=== PATIENT | male | born 1985 | race Caucasian/White ===

== ENCOUNTER 2017-05-10 15:30 | Emergency (ER) | payer OTHER ==
[~2017-05-10] VITALS: Ht 177.8 cm; Wt 81.8 kg
[~2017-05-10 15:30] MED LIST: CELEXA40 MG PO; DESYREL100 MG PO; MELATONIN5 M1 PO; MOBIC15 MG PO; PERCOCET 5/31 TABLET PO; PROAIR HFA8.5 GM IH; TRAMADOL HCL50 MG PO
[2017-05-10 15:43] VITALS: BP 129/88
[2017-05-10 15:57] LABS: ADD MIUA? NO; BILIRUBIN NEGATIVE; BLOOD NEGATIVE; COLOR STRAW ((YELLOW)); GLUCOSE (STRIP) NEGATIVE; KETONES 5; LEUKOCYTES NEGATIVE; NITRITE NEGATIVE; PROTEIN (STRIP) NEGATIVE; SPECIFIC GRAVITY 1.003 (1.000-1.030); UCUL ADDED? NO; UROBILINOGEN 0.2 MG/DL (0.2-1.0)
[2017-05-10 16:24] LABS: HEMATOCRIT 48.8 % (38.0-50.0); MCH 32.3 PG (29.0-34.0); MCHC 35.2 G/DL (30.0-36.0); MCV 91.6 FL (86-99); MEAN PLAT.VOLUME 9.7 uM^3 (9.0-12.4); PLATELET COUNT 345 K/uL (156-360); RBC DIS.WIDTH-CV 11.9 % (11.8-14.6); RBC DIS.WIDTH-SD 40.5 % (39-53); RED BLOOD COUNT 5.33 M/uL (4.00-5.50); WHITE BLOOD COUNT 7.2 K/uL (4.1-10.2)
[2017-05-10 16:26] LABS: CHLORIDE 103 mEq/L (99-109); POTASSIUM 3.5 mEq/L (3.7-5.4); SODIUM 140 mEq/L (136-147)
[2017-05-10 16:28] LABS: GLUCOSE 127 mg/dL (70-99)
[2017-05-10 16:29] LABS: ANION GAP 15 MEQ/L (2-14)
[2017-05-10 16:32] LABS: GFR ESTIMATE (CALCULATED) > 59 mL/min/
[2017-05-10 16:33] LABS: UREA NITROGEN (BUN) 11 mg/dL (9-23)
== END 2017-05-10 18:20 | disposition left against medical advice (07) ==
LOC: EME 15:30
DX: R10.9 Unspecified abdominal pain (principal); Z53.21 Procedure and treatment not carried out due to patient leaving prior to being seen by health care provider
CPT/HCPCS: 80048; 81003; 85027